=== PATIENT | female | born 1960 | race Caucasian/White ===

== ENCOUNTER 2016-04-16 11:11 | Outpatient (CLI) | payer OTHER ==
[~2016-04-16 11:11] MED LIST: ACETAMINOPHEN325 MG PO; CEFTIN500 MG PO; IBUPROFEN400 MG PO; LISINOPRIL/HYDR1 TA1; PAXIL10 MG PO
--- NOTE | 2016-04-16 11:58 | DIAGNOSTIC IMAGING REPORT ---
PROCEDURE: XR CHEST 2 VIEW INDICATION: PNEUMONIA TECHNIQUE: PA and lateral views. COMPARISON: Chest 03/30/2016 FINDINGS: There has been resolution of the right middle lobe infiltrate. The lungs are now clear. Heart and mediastinum are normal. Thorax is normal. IMPRESSION: 1. Resolution of right middle lobe infiltrate. Lungs clear.
== END 2016-04-16 23:00 ==
LOC: LAB SRH 11:11 → XR SRH 11:11
DX: R91.8 Other nonspecific abnormal finding of lung field (principal)